=== PATIENT | male | born 1995 | race African-American/Black ===

== ENCOUNTER 2022-09-05 09:33 | Emergency (ER) | payer OTHER ==
[~2022-09-05] VITALS: Ht 175.3 cm; Wt 81.0 kg
[2022-09-05] MEDS ORDERED: TETANUS, DIPHTHERIA, PERTUSSIS VAC/PF 0.5ML (>10YR OLD) IM ONE (10:45)
[2022-09-05] MEDS ORDERED: BO1 TP (10:49)
[2022-09-05 11:07] VITALS: BP 121/71
== END 2022-09-05 11:08 | disposition home or self-care (01) ==
LOC: ER 09:33
DX: S61.411A Laceration without foreign body of right hand, initial encounter (principal); W26.0XXA Contact with knife, initial encounter; Y93.89 Activity, other specified; Y92.89 Other specified places as the place of occurrence of the external cause; Y99.8 Other external cause status
CPT/HCPCS: 12001; 90471; 90715; 99283; Z7610

== ENCOUNTER 2022-09-16 14:07 | Emergency (ER) | payer OTHER ==
[~2022-09-16] VITALS: Ht 175.3 cm; Wt 82.0 kg
[~2022-09-16 14:07] MED LIST: BO1 TP
[2022-09-16 14:57] VITALS: BP 124/68
== END 2022-09-16 14:57 ==
LOC: ER 14:07
DX: S61.411D Laceration without foreign body of right hand, subsequent encounter (principal); X58.XXXD Exposure to other specified factors, subsequent encounter
CPT/HCPCS: 99281; Z7610